=== PATIENT | male | born 1995 | race Caucasian/White ===

== ENCOUNTER 2020-08-22 12:00 | Day surgery (SDC) | payer OTHER ==
[~2020-08-22] VITALS: Ht 165.1 cm; Wt 90.7 kg
[2020-08-22 11:32] VITALS: BP 146/92; PULSE 82; TEMP 98.2
--- NOTE | 2020-08-22 11:55 | NUR ---
1155-Patient is alert and oriented. Consent obtained and pre-op checklist completed. Patient is resting comfortably with friend at bedside. IV site is wnl and fluids are infusing easily. Attempted IV stick x2 with second attempt successful. First attempt patient became pale and diaphoretic upon initial stick and withdrew his hand, so had to remove IV catheter. Given cool cloth on his forehead and reclined back in chair. Patient did well with second IV stick. Call do in reach. Report given to DAGOBERTO Merchant.
[2020-08-22 13:20] VITALS: BP 115/53; PULSE 62; TEMP 97.6
--- NOTE | 2020-08-22 13:20 | NUR ---
Pt returned to room post procedure via cart with Endo RN. Pt was able to ambulate easily to chair with SBA. VSS and WNL. Pt alert, awake, and oriented. Sprite and pudding brought to pt per his request. at chairside reviewing procedure with pt and friend. Pt to try soft diet and advance slowly and as tolerated. Pt denies nausea or pain at this time, and he reports a significant difference in how he feels, especially with being able to swallow.
[2020-08-22 13:30] VITALS: BP 118/74; PULSE 56
--- NOTE | 2020-08-22 13:30 | NUR ---
Pt sitting comfortably in chair and was successfully able to finish pudding and Sprite with no c/o nausea or "spitting up." VSS an WNL and pt alert, awake, and oriented. Call light within reach.
[2020-08-22 13:45] VITALS: BP 118/80; PULSE 66
--- NOTE | 2020-08-22 13:45 | NUR ---
Pt states that he is ready to go home. VSS and WNL.
[2020-08-22 14:00] VITALS: BP 121/97; PULSE 61
--- NOTE | 2020-08-22 14:00 | NUR ---
Reviewed discharge information with patient including education packet. All patient questions answered. Pt meets criteria for discharge.
== END 2020-08-22 14:15 | disposition home or self-care (01) ==
LOC: SDCO 12:00
DX: K20.90 Esophagitis, unspecified without bleeding (principal); T18.128A Food in esophagus causing other injury, initial encounter; K22.2 Esophageal obstruction; Z88.8 Allergy status to other drugs, medicaments and biological substances; F17.290 Nicotine dependence, other tobacco product, uncomplicated
CPT/HCPCS: J2704; J7030

== ENCOUNTER 2020-11-30 15:03 | Day surgery (SDC) | payer OTHER ==
[2020-11-30 15:14] VITALS: BP 131/69; PULSE 54; TEMP 97.4
--- NOTE | 2020-11-30 15:41 | NUR ---
Patient arrived via EMS. Alert and oriented x 3. Assessment complete. Patient oriented to room. No further needs at this time.
[2020-11-30] MEDS ORDERED: PRIL40 PO (17:46)
[2020-11-30 18:00] VITALS: BP 105/50; PULSE 91
--- NOTE | 2020-11-30 18:00 | NUR ---
Patient up from Endoscopy. Alert and oriented x 3. Friend at bedside. Post op VSS. Post op fluids infusing per orders. Denies needs at this time. Will report off to supervisor cellars.
[2020-11-30 18:15] VITALS: BP 108/46; PULSE 86
[2020-11-30 18:30] VITALS: BP 104/55; PULSE 87
[2020-11-30 18:45] VITALS: BP 113/62; PULSE 83
--- NOTE | 2020-11-30 19:17 | NUR ---
PT AWAKE AND ALERT, RESTING IN BED. DENIES ANY NEEDS AT THIS TIME. CALL LIGHT IN REACH.
[2020-11-30 20:00] VITALS: BP 119/76; PULSE 77; TEMP 97.5
--- NOTE | 2020-11-30 22:16 | NUR ---
Awake and taking water without any difficulty. Discharge instructions given with verbal understanding. Papers signed. IV site dc'd with cath intact and bandaid applied to site. Minimal bleeding from site noted. Denies pain. VS monitored. Encouraged soft diet for 24 hour and may increase as john. Stand by assist to ER entrance. Steady gait.
== END 2020-11-30 20:00 | disposition home or self-care (01) ==
LOC: SDCO 15:03 → SURG 15:04 → SDCO 20:00
DX: T18.128A Food in esophagus causing other injury, initial encounter (principal); K21.00 Gastro-esophageal reflux disease with esophagitis, without bleeding; Z88.8 Allergy status to other drugs, medicaments and biological substances; E66.9 Obesity, unspecified
CPT/HCPCS: OP; J2704

== ENCOUNTER 2021-06-30 16:20 | Day surgery (SDC) | payer OTHER ==
[2021-06-30] VITALS (9 sets, daily range): BP systolic 93–123; BP diastolic 61–85; PULSE 79–108; TEMP 98.2
[~2021-06-30] VITALS: Ht 170.2 cm; Wt 101.4 kg
[~2021-06-30 16:20] MED LIST: PRIL40 PO
--- NOTE | 2021-06-30 18:05 | NUR ---
1740 Hand off report received from DAGOBERTO Hector. Pt remains in procedure room. This RN assuming care. Pt coughing and only complaint is a sore throat. O2 saturations in mid 80s% on room air--on room air due to frequent coughing--O2 mask not tolerated. 1750 Chest x-ray obtained due to probable aspiration. [address]10 Discussion with pt and Dr. Dior regarding possibly staying overnight if O2 saturations don't improve. RT Called for a breathing treatment. 1815 Pt continues to cough, but less. Clear mucus with productive cough.
--- NOTE | 2021-06-30 19:21 | NUR ---
1825 RT here for breathing treatment. 182 Dr. Dior out of room. 185 Dr. Dior called with update on pt. Following report, Dr. Dior is agreeable to discharge pt with the understanding that he would seek medical help if needed for breathing issues tonight. The pt is agreeable to this and has voiced understanding during this time. 191 Discharge instructions reviewed with pt. Handed to him are a thank you card and discharge information. All questions answered to his satisfaction. 192 Pt transferred out of hospital via wheelchair and this RN assist to private vehicle driven by pt's .
== END 2021-06-30 19:21 | disposition home or self-care (01) ==
LOC: SDCO 16:20
DX: T18.128A Food in esophagus causing other injury, initial encounter (principal); K21.00 Gastro-esophageal reflux disease with esophagitis, without bleeding; K31.84 Gastroparesis; F17.290 Nicotine dependence, other tobacco product, uncomplicated
CPT/HCPCS: J7120

== ENCOUNTER 2021-07-25 10:31 | Day surgery (SDC) | payer OTHER ==
[~2021-07-25] VITALS: Ht 170.2 cm; Wt 103.6 kg
[2021-07-25 11:41] VITALS: BP 124/75; PULSE 70; TEMP 98
[2021-07-25 14:35] VITALS: BP 117/72; PULSE 77; TEMP 97.2
--- NOTE | 2021-07-25 14:35 | NUR ---
The patient arrived back to [facility] from the procedure room at this time. The patient ambulated from the cart to the recliner in his room with the stand by assistance of two nurses and appeared to tolerate the activity well. Post procedure vital signs were started at this time. The patient agrees to try some sprite. Call light is within reach. Will continue to monitor the patient.
[2021-07-25 14:50] VITALS: BP 123/82; PULSE 83
--- NOTE | 2021-07-25 14:50 | NUR ---
The patient is sitting up in the recliner and appears to be tolerating sprite well. Vital signs appear stable. The patient is waiting to speak to the doctor regarding the findings of his procedure prior to discharge.
[2021-07-25 15:05] VITALS: BP 119/95; PULSE 83
--- NOTE | 2021-07-25 15:05 | NUR ---
The patient has spoke with Dr. Nunez about the findings of the procedure and verbalizes a desire to be discharged home. Discharge instructions were reviewed with the patient at this time. He verbalized understanding and has no questions for the nurse at this time. The patient's IV to his right hand was removed and a pressure dressing was applied to the site. The nurse instructed the patient to get dressed and notify the staff when he is ready to escorted out.
--- NOTE | 2021-07-25 15:15 | NUR ---
The patient was escorted out via wheelchair to a private vehicle by DAGOBERTO Coburn. The patient's belongings and discharge paperwork were sent with her. The patient's is present to drive him home.
== END 2021-07-25 15:15 | disposition home or self-care (01) ==
LOC: SDCO 10:31
DX: K22.2 Esophageal obstruction (principal); K21.00 Gastro-esophageal reflux disease with esophagitis, without bleeding; Z79.899 Other long term (current) drug therapy; Z20.822 Contact with and (suspected) exposure to COVID-19
CPT/HCPCS: C1726; J2704; J7030

== ENCOUNTER 2021-09-21 18:10 | Emergency (ER) | payer OTHER ==
[~2021-09-21] VITALS: Ht 170.2 cm; Wt 100.0 kg
[2021-09-21 18:21] VITALS: BP 132/86; PULSE 85; TEMP 98.6
== END 2021-09-21 19:00 | disposition left against medical advice (07) ==
LOC: COL.ER 18:10
DX: K92.9 Disease of digestive system, unspecified (principal)